=== PATIENT | female | born 1960 | race Caucasian/White ===

== ENCOUNTER 2025-01-14 09:23 | Emergency (ER) | payer MEDICARE, OTHER, SELFPAY ==
--- NOTE | ~2025-01-14 | CT_ITS ---
CLINICAL HISTORY: constipation urinary retention. ?sbo CT ABDOMEN AND PELVIS WITHOUT CONTRAST Comparison: None Findings: Irregular linear densities in the right middle and bilateral lower lobes associated with hazy ground-glass opacities. No pleural effusion or consolidation. Small hiatal hernia. There are bilateral breast prostheses. Postsurgical changes in the left breast below the prosthesis. No acute abnormalities in the unenhanced solid organs. No urolithiasis. Cholelithiasis. No AAA. No bowel obstruction, pneumoperitoneum, or pneumatosis. No ascites. No significant mesenteric or paracolic edema. Large stool burden in the ascending colon. The urinary bladder is distended up to 14 x 11 x 11 cm. No significant wall thickening or perivesical edema. Atrophic uterus. The appendix is identified. No acute appendicitis. There are mild superior endplate compression deformities in T11, T12 and L4. IMPRESSION: 1. No acute obstructive uropathy or urolithiasis. Prominent urinary bladder distention with a volume of approximately 881 mL. 2. No obstructive or acute inflammatory changes in the gastrointestinal tract. 3. Cholelithiasis. 4. Multifocal atelectasis and/or scarring in the right middle and bilateral lower lobes. Concomitant ground-glass opacities secondary to atelectasis versus inflammation/infection. 5. Age-indeterminate mild compression fractures in T11, T12 and L4. This document has been electronically signed by: Marianela Cardona DO on 01/14/2025 13:15:27
[2025-01-14 09:30] VITALS: BP 147/92; PULSE 108; RESP 16; TEMP 36.4; O2SAT 98; BMI 29.8
--- OUTSIDE RECORDS SUMMARY | 2025-01-14 09:46 | XMS_ITS | Clinical Summary ---
Author Organization Formerly [facility] Address [address] [place] [address] Care Team Providers Care Lathe Turner Name Role Phone Unavailable Primary Care Provider Unavailabl e Allergies No known active allergies Medications Calcium Carbonate-Vitam in D (CALCIUM-D PO) Calcium + D TABS ; Start Date: ; End Date: Active Flaxseed, Linseed, (FLAX SEED OIL) 1000 MG Cap Flax Seed Oil 1000 MG Oral Capsule ; Start Date: ; End Date: Active dronedarone (MULTAQ) 400 MG tablet Multaq 400 MG Oral Tablet TAKE 1 TABLET TWICE DAILY, WITH MORNING AND EVENING MEAL ; Start Date: 04/11/2014; End Date: 04/11/2014 Active Multiple Vitamin (MULTIVITAMIN) tablet Take 1 tablet by mouth daily. Active aspirin enteric coated (ECOTRIN LOW STRENGTH) 81 MG EC tablet Take 81 mg by mouth daily. Active L-Methylfolate- [id number] (CEREFOLIN) 6-1-50-5 MG TabIndications: Memory loss TAKE 1 CAPLET BY MOUTH DAILY. 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 Resolved Problems Problem Noted Date Diagnosed Date Resolved Date URI (upper respiratory infection) 08/01/2015 11/26/2023 Immunizations Immunization Administration Dates Next Due Influenza (AFLURIA/FLUZONE) Inactivated/Split Quadrivalent with Preservative IM 10/02/2014,09/15/2013 Influenza Inactivated/Split Preservative Free IM 07/03/2016,06/16/2012,06/05/2011 Tdap 06/16/2012 Social History Tobacco Use Types Packs/Day Years Used Date Smoking Tobacco: Never Alcohol Use Standard Drinks/Week Comments No 0 (1 standard drink = 0.6 oz pur e alcohol) Comments No Sex and Gender Information Value Date Recorded Sex Assigned at Not on file Legal Sex Female 1:26 PM EDT Gender Identity Not on file Sexual Orientation Not on file Last Filed Vital Signs Vital Sign Reading Time Taken Comments Blood Pressure 121/80 09/05/2016 12:27 PM EST Pulse 93 09/05/2016 12:27 PM EST Temperature 36.8 ??C (98.2 ??F) 09/05/2016 12:[address] Respiratory Rate 12 09/05/2016 12:27 PM EST Oxygen Saturation - - Inhaled Oxygen Concentration - - Weight 74.4 kg (164 lb) 09/05/2016 12:27 PM EST Height 177.8 cm (5' 10 ) 09/05/2016 12:27 PM EST Body Mass Index 23.53 09/05/2016 12:27 PM EST Plan of Treatment Health Maintenance Due Date Last Done Comments Hepatitis C Virus Screening 1959 HIV Screening 02/15/1972 Pneumococcal Vaccines 50+ (1 of 2 - PCV) 1978 Colonoscopy 02/15/2004 Zoster (Shingles) Vaccine (1 of 2) 2009 Pap Smear (Ages 21-65) 10/02/2017 10/02/2014 Mammogram 07/04/2018 07/04/2016, 02/12, 07/05/2012 RSV Vaccine 60 years and older and Patients (1 - Risk 60-74 years 1-dose series) 2019 DTaP/Tdap/Td Vaccines (2 - Td or Tdap) 06/16/2022 06/16/2012 DXA Bone Density (Females,Ages 65 and older) 02/15/2024 COVID-19 Vaccine (1 - season) 2024 Influenza Vaccine 04/14/2025 07/03/2016, , 09/15/2013, Additional history exists Hepatitis B Vaccines Aged Out No long er eligible based on patient's age to complete this topic Procedures Procedure Name Priority Date/Time Associated Diagnosis Comments IMAGING BREAST/BX/MAMMO 07/04/2016 THINPREP PAP TEST (METALWORKER) WITH HPV SCREEN Routine 10/02/2014 4:51 PM EST from Last 3 Months or Most Recently Relevant to Health Maintenance Results * IMAGING BREAST/BX/MAMMO (07/04/2016) Anatomical Region Laterality Modality Other Narrative 07/05/2016 6:54 AM EDT Ordered by an unspecified provider. us Generic Provider IMG LEGACY PROCEDURES Edited Re sult - Final * ThinPrep Pap Test (Committee Member) with HPV Screen (10/02/2014 4:51 PM EST) Report [facility] CONVERSION Comment: ? GYNECOLOGICAL CYTOLOGY REPORT ? THINPREP PAP TEST WITH HPV SCREEN SPECIMEN ADEQUACY: SATISFACTORY FOR EVALUATION. INTERPRETATION: NEGATIVE FOR INTRAEPITHELIAL LESION OR MALIGNANCY. SCANT CELLULARITY. ATROPHY. ?ELECTRONICALLY SIGNED OUT BY: ? LINDA MCCAIN (ASCP) ? CLINICAL INFORMATION: LMP: ??NG SOURCE: CERVICAL ?? NUMBER OF VIALS/SLIDES SUBMITTED ??1 DIAGNOSIS / ICD-9 ??V70.0 ABNORMAL PAP DATE ??NG ? AUTOMATED PRESCREENING OF ALL LIQUID BASED SPECIMENS IS PERFORMED BY THE IM-Sense IMAGING SYSTEM OR FOCALPOINT, UNLESS OTHERWISE STATED. THE PAP TEST IS A SCREENING TEST WITH AN INHERENT FALSE NEGATIVE RATE. UNLESS NOTED, THIS CASE WAS SCREENED AT [facility] [place], [place] [address] CT REG # [id number]. ?? 10/02/2014 4:51 PM EST us Ciera Pierce MD LAB AMB PATH/CYTO ORDERABLE S Edited Result - Final [facility] CONVERSION from Last 3 Months or Most Recently Relevant to Health Maintenance Insurance [facility] [place] [id number]
--- OUTSIDE RECORDS SUMMARY | 2025-01-14 09:46 | XMS_ITS | Encounter Summary ---
Author Organization Formerly [facility] Address [address] [place] [address] Care Team Providers Care Blanking Machine Operator Name Role Phone Cristina Fournier DO Primary Care Provider [phone] Encounter Details Date Type Department Care Team (Late st Contact Info) Description 08/24/2017 Scanned Document [address] [phone] Provider, Generic Social History Tobacco Use Types Packs/Day Years Used Date Smoking Tobacco: Never Alcohol Use Standard Drinks/Week Comments No 0 (1 standard drink = 0.6 oz pur e alcohol) Comments No Sex and Gender Information Value Date Recorded Sex Assigned at Not on file Legal Sex Female 1:26 PM EDT Gender Identity Not on file Sexual Orientation Not on file documented as of this encounter Plan of Treatment Not on file documented as of this encounter Visit Diagnoses Not on filedocumented in this encounter Care Teams Blanking Machine Operator Relationship Specialty Start Date End Date Cristina Fournier DO PCP - General Family Medicine 07/04/16 09/21/17 documented as of this encounter
--- OUTSIDE RECORDS SUMMARY | 2025-01-14 09:46 | XMS_ITS | Encounter Summary ---
Author Organization [facility] Address [address] [place] [address] Care Team Providers Care Database Management Specialist Name Role Phone Cristina Fournier DO Primary Care Provider [phone] Encounter Details Date Type Department Care Team (Late st Contact Info) Description 08/24/2017 Scanned Document [address] [phone] Provider, Generic Social History Tobacco [...] on filedocumented in this encounter Care Teams Database Management Specialist Relationship Specialty Start Date End Date Cristina Fournier DO PCP - General Family Medicine 07/04/16 09/21/17 documented as of this encounter
--- OUTSIDE RECORDS SUMMARY | 2025-01-14 09:47 | XMS_ITS | Encounter Summary ---
Author Organization [facility] Address [address] [place] [address] Care Team Providers Care Spindle Plumber Name Role Phone Ciera Pierce MD Primary Care Provider [phone] Cristina Fournier DO Primary Care Provider [phone] Encounter Details Date Type Department Care Team (Late st Contact Info) Description 08/24/2014 Scanned Document [address] [phone] Provider, Generic Social History Tobacco Use Types Packs/Day Years Used Date Smoking Tobacco: Never Assessed Comments Unknown Sex and Gender Information Value Date Recorded Sex Assigned at Not on file Legal Sex Female 1:26 PM EDT Gender Identity Not on file Sexual Orientation Not on file documented as of this encounter Plan of Treatment Not on file documented as of this encounter Visit Diagnoses Not on filedocumented in this encounter Care Teams Spindle Plumber Relationship Specialty Start Date End Date Ciera Pierce MD PCP - General Internal Medicine 06/01/15 07/03/16 Cristina Fournier DO PCP - General Family Medicine 07/04/16 09/21/17 documented as of this encounter
--- OUTSIDE RECORDS SUMMARY | 2025-01-14 09:47 | XMS_ITS | Encounter Summary ---
Author Organization [facility] Address [address] [place] [address] Care Team Providers Care Superintendent Greens Name Role Phone Ciera Pierce MD Primary Care Provider [phone] Cristina Fournier DO Primary Care Provider [phone] Encounter Details Date Type Department Care Team (Late st Contact Info) Description 08/24/2014 Scanned Document [address] [phone] Provider, Generic Social History Tobacco Use Types [...] on filedocumented in this encounter Care Teams Superintendent Greens Relationship Specialty Start Date End Date Ciera Pierce MD PCP - General Internal Medicine 06/01/15 07/03/16 Cristina Fournier DO PCP - General Family Medicine 07/04/16 09/21/17 documented as of this encounter
--- OUTSIDE RECORDS SUMMARY | 2025-01-14 09:47 | XMS_ITS | Encounter Summary ---
Author Organization Formerly [facility] Address [address] [id number] Care Team Providers Care Lang Interpreter Name Role Phone Cristina Fournier Primary Care Provider Reason for Visit * Reason Onset Date Comments Medication Problem 07/04/2016 Encounter Details Date Type Department Care Team (Late st Contact Info) Description 07/04/[address] [phone] Ciera Pierce MD [address] [place] [address] [place] [phone] Medication Problem Social History Tobacco Use Types Packs/Day Years Used Date Smoking Tobacco: Never Alcohol Use Standard Drinks/Week Comments Not Asked 0 (1 standard drink = 0.6 oz pur e alcohol) Comments No Sex and Gender Information Value Date Recorded Sex Assigned at Not on file Legal Sex Female 1:26 PM EDT Gender Identity Not on file Sexual Orientation Not on file documented as of this encounter Miscellaneous Notes * Telephone Encounter - Priscilla Hatfield RN - 07/04/2016 3:05 PM EDT 07-04-16 PT WOULD LIKE TO KNOW HOW SHE SHOULD WEAN HERSELF OFF THE MED * Telephone Encounter - Priscilla Hatfield RN - 07/04/2016 2:47 PM EDT 07-04-16 2:45PM LM TO CB * Telephone Encounter - Cristina Fournier DO - 07/04/2016 2:29 PM EDT We discussed that they do not come in 5mg tablets. She could either do her best to try to cut them in half; or she can just stop taking them, and see how she feels. In my experience, people do sometimes have side effects when they abruptly stop an SSRI, so it would be better if she can find a way to cut them. * Telephone Encounter - Priscilla Hatfield RN - 07/04/2016 10:50 AM EDT 07-04-16 FLUOXETINE DOES NOT COME IN 5 MG TABS PLEASE ADVISE * Telephone Encounter - Shabana Herring - 07/04/2016 10:45 AM EDT Patient called- wants to be on 5mg fluoxetine because the 10mg is too difficult to cut . Patient explained she went to pharmacy and they tried pill cutters and the pill crumbled. Patient is going to return pills topharmacy and also states she wants to be weaned off. Wants advice. -ld documented in this encounter Plan of Treatment Not on file documented as of this encounter Visit Diagnoses Not on filedocumented in this encounter Care Teams Lang Interpreter Relationship Specialty Start Date End Date Cristina Fournier DO PCP - General Family Medicine 07/04/16 09/21/17 documented as of this encounter
--- OUTSIDE RECORDS SUMMARY | 2025-01-14 09:47 | XMS_ITS | Encounter Summary ---
Author Organization [facility] Address [address] [place] [address] Care Team Providers Care Threshing Department Supervisor Name Role Phone Ciera Pierce MD Primary Care Provider [phone] Cristina Fournier DO Primary Care Provider [phone] Reason for Visit * Reason Comments Medication Refill Encounter Details Date Type Department Care Team (Late st Contact Info) Description 04/22/[address] [phone] Ciera Pierce MD [address] [place] [address] [place] [phone] Depression Social History Tobacco Use Types Packs/Day Years [...] documented as of this encounter Visit Diagnoses Diagnosis Depression Depressive disorder, not elsewhere classified documented in this encounter Care Teams Threshing Department Supervisor Relationship Specialty Start Date End Date Ciera Pierce MD PCP - General Internal Medicine 06/01/15 07/03/16 Cristina Fournier DO PCP - General Family Medicine 07/04/16 09/21/17 documented as of this encounter
--- OUTSIDE RECORDS SUMMARY | 2025-01-14 09:47 | XMS_ITS | Clinical Summary ---
Author Organization [facility] Address [address] [place] [address] Care Team Providers Care Dance Director Name Role Phone Shantanu Cristina Victor Hugo ELIZABETH Primary Care Provider [phone] Social History Tobacco Use Types Packs/Day Years Used Date Smoking Tobacco: Never Assessed Sex and Gender Information Value Date Recorded Sex Assigned at Not on file Gender Identity Not on file Sexual Orientation Not on file Plan of Treatment Health Maintenance Due Date Last Done Comments Hepatitis C Screening 1960 COVID-19 Vaccine (#1) 1959 Depression Screening 1971 Preventative Health Evaluation 1977 DTap / Tdap / Td (1 - Tdap) 1978 Cervical Cancer Screening (P ap Smear) 02/15/1980 Colon Cancer Screening (Colonoscopy) 02/15/2004 Shingrix-Zoster Vaccine (1 of 2) 2009 Breast Cancer Screening (Mammogram) 07/04/2018 07/04/2016 Fall Risk Assessment 02/15/2024 Osteoporosis Screening (DEXA Scan) 02/15/2024 Pneumococcal Vaccine (1 of 1 - PCV) 02/15/2024 Influenza Vaccine (#1) 2024 RSV Adult > 60+ Yrs or Pregn ant (1 - 1-dose 75+ series) 2034 Hepatitis B Vaccines Aged Out No long er eligible based on patient's age to complete this topic Pneumococcal Vaccine Aged Out No long er eligible based on patient's age to complete this topic RSV Ped < 20 months Aged Out No longe r eligible based on patient's age to complete this topic Advance Directives For more information, please contact: [phone] Documents on File Type Date Recorded Patient Or Manager Expl anation Advance Directive and Living Will 07/04/2016 8:40 AM Will Care Teams Dance Director Relationship Specialty Start Date End Date Cristina Fournier DO [address] [place] [phone] PCP - General Family Medicine 07/04/16
--- OUTSIDE RECORDS SUMMARY | 2025-01-14 09:47 | XMS_ITS | Encounter Summary ---
Author Organization [facility] Address [address] [place] [address] Care Team Providers Care Paving Foreman Name Role Phone Ciera Pierce MD Primary Care Provider [phone] Cristina Fournier DO Primary Care Provider [phone] Encounter Details Date Type Department Care Team (Late st Contact Info) Description 08/24/2014 Scanned Document [address] [phone] Provider, Generic Social History Tobacco Use Types [...] on filedocumented in this encounter Care Teams Paving Foreman Relationship Specialty Start Date End Date Ciera Pierce MD PCP - General Internal Medicine 06/01/15 07/03/16 Cristina Fournier DO PCP - General Family Medicine 07/04/16 09/21/17 documented as of this encounter
--- OUTSIDE RECORDS SUMMARY | 2025-01-14 09:47 | XMS_ITS | Encounter Summary ---
Author Organization [facility] Address [address] [place] [address] Care Team Providers Care Mold Filler And Drainer Name Role Phone Ciera Pierce MD Primary Care Provider [phone] Cristina Fournier DO Primary Care Provider [phone] Encounter Details Date Type Department Care Team (Late st Contact Info) Description 04/23/2015 Scanned Document [address] [phone] Provider, Generic Social History Tobacco Use Types [...] on filedocumented in this encounter Care Teams Mold Filler And Drainer Relationship Specialty Start Date End Date Ciera Pierce MD PCP - General Internal Medicine 06/01/15 07/03/16 Cristina Fournier DO PCP - General Family Medicine 07/04/16 09/21/17 documented as of this encounter
--- OUTSIDE RECORDS SUMMARY | 2025-01-14 09:47 | XMS_ITS | Encounter Summary ---
Author Organization [facility] Address [address] [place] [address] Care Team Providers Care Heel Dipper Name Role Phone Cristina Fournier DO Primary Care Provider [phone] Encounter Details Date Type Department Care Team (Late st Contact Info) Description 09/05/2016 Scanned Document [address] [phone] Cristina Fournier DO [address] [place] [address] Social History Tobacco Use Types Packs/Day Years [...] on filedocumented in this encounter Care Teams Heel Dipper Relationship Specialty Start Date End Date Cristina Fournier DO PCP - General Family Medicine 07/04/16 09/21/17 documented as of this encounter
--- OUTSIDE RECORDS SUMMARY | 2025-01-14 09:47 | XMS_ITS | Encounter Summary ---
Author Organization [facility] Address [address] [place] [address] Care Team Providers Care Food Counselor Name Role Phone Ciera Pierce MD Primary Care Provider [phone] Cristina Fournier DO Primary Care Provider [phone] Encounter Details Date Type Department Care Team (Late st Contact Info) Description 08/24/2014 Scanned Document [address] [phone] Provider, Generic Social History Tobacco Use Types [...] on filedocumented in this encounter Care Teams Food Counselor Relationship Specialty Start Date End Date Ciera Pierce MD PCP - General Internal Medicine 06/01/15 07/03/16 Cristina Fournier DO PCP - General Family Medicine 07/04/16 09/21/17 documented as of this encounter
--- OUTSIDE RECORDS SUMMARY | 2025-01-14 09:47 | XMS_ITS | Encounter Summary ---
Author Organization [facility] Address [address] [place] [address] Care Team Providers Care Executive Talent Acquisition Consultant Name Role Phone Cristina Fournier DO Primary Care Provider [phone] Encounter Details Date Type Department Care Team (Late st Contact Info) Description 09/25/2016 Scanned Document [address] [phone] Provider, Generic Social History Tobacco [...] on filedocumented in this encounter Care Teams Executive Talent Acquisition Consultant Relationship Specialty Start Date End Date Cristina Fournier DO PCP - General Family Medicine 07/04/16 09/21/17 documented as of this encounter
--- OUTSIDE RECORDS SUMMARY | 2025-01-14 09:47 | XMS_ITS | Encounter Summary ---
Author Organization [facility] Address [address] [place] [address] Care Team Providers Care Forming Department End Finder Name Role Phone Cristina Fournier DO Primary Care Provider [phone] Encounter Details Date Type Department Care Team (Late st Contact Info) Description 07/11/2016 Scanned Document [address] [phone] Cristina Fournier DO [address] [place] [address] Social History Tobacco Use Types Packs/Day Years [...] on filedocumented in this encounter Care Teams Forming Department End Finder Relationship Specialty Start Date End Date Cristina Fournier DO PCP - General Family Medicine 07/04/16 09/21/17 documented as of this encounter
--- OUTSIDE RECORDS SUMMARY | 2025-01-14 09:47 | XMS_ITS | Encounter Summary ---
Author Organization [facility] Address [address] [place] [address] Care Team Providers Care Senior Peoplesoft Developer Name Role Phone Ciera Pierce MD Primary Care Provider [phone] Cristina Fournier DO Primary Care Provider [phone] Encounter Details Date Type Department Care Team (Late st Contact Info) Description 08/24/2014 Scanned Document [address] [phone] Provider, Generic Social History Tobacco Use Types [...] on filedocumented in this encounter Care Teams Senior Peoplesoft Developer Relationship Specialty Start Date End Date Ciera Pierce MD PCP - General Internal Medicine 06/01/15 07/03/16 Cristina Fournier DO PCP - General Family Medicine 07/04/16 09/21/17 documented as of this encounter
--- OUTSIDE RECORDS SUMMARY | 2025-01-14 09:47 | XMS_ITS | Encounter Summary ---
Author Organization [facility] Address [address] [place] [address] Care Team Providers Care Compliance Nurse Name Role Phone Ciera Pierce MD Primary Care Provider [phone] Cristina Fournier DO Primary Care Provider [phone] Encounter Details Date Type Department Care Team (Late st Contact Info) Description 11/08/2015 Scanned Document [address] [phone] Provider, Generic Social History Tobacco [...] on filedocumented in this encounter Care Teams Compliance Nurse Relationship Specialty Start Date End Date Ciera Pierce MD PCP - General Internal Medicine 06/01/15 07/03/16 Cristina Fournier DO PCP - General Family Medicine 07/04/16 09/21/17 documented as of this encounter
--- OUTSIDE RECORDS SUMMARY | 2025-01-14 09:47 | XMS_ITS | Encounter Summary ---
Author Organization [facility] Address [address] [place] [address] Care Team Providers Care Incident Response Lead Name Role Phone Ciera Pierce MD Primary Care Provider [phone] Cristina Fournier DO Primary Care Provider [phone] Encounter Details Date Type Department Care Team (Late st Contact Info) Description 08/24/2014 Scanned Document [address] [phone] Provider, Generic Social History Tobacco Use Types [...] on filedocumented in this encounter Care Teams Incident Response Lead Relationship Specialty Start Date End Date Ciera Pierce MD PCP - General Internal Medicine 06/01/15 07/03/16 Cristina Fournier DO PCP - General Family Medicine 07/04/16 09/21/17 documented as of this encounter
--- OUTSIDE RECORDS SUMMARY | 2025-01-14 09:47 | XMS_ITS | Encounter Summary ---
Author Organization [facility] Address [address] [place] [address] Care Team Providers Care Driver Trainer Name Role Phone Ciera Pierce MD Primary Care Provider [phone] Cristina Fournier DO Primary Care Provider [phone] Encounter Details Date Type Department Care Team (Late st Contact Info) Description 07/12/2015 Scanned Document [address] [phone] Provider, Generic Social History Tobacco Use Types [...] on filedocumented in this encounter Care Teams Driver Trainer Relationship Specialty Start Date End Date Ciera Pierce MD PCP - General Internal Medicine 06/01/15 07/03/16 Cristina Fournier DO PCP - General Family Medicine 07/04/16 09/21/17 documented as of this encounter
--- OUTSIDE RECORDS SUMMARY | 2025-01-14 09:47 | XMS_ITS | Encounter Summary ---
Author Organization [facility] Address [address] [place] [address] Care Team Providers Care Legal Coordinator Name Role Phone Cristina Fournier DO Primary Care Provider [phone] Encounter Details Date Type Department Care Team (Late st Contact Info) Description 07/04/2016 Scanned Document [address] [phone] Provider, Generic Social History Tobacco Use Types [...] on file documented as of this encounter Procedures Procedure Name Priority Date/Time Associated Diagnosis Comments IMAGING BREAST/BX/MAMMO 07/04/2016 documented in this encounter Results * IMAGING BREAST/BX/MAMMO (07/04/2016) Anatomical Region Laterality Modality Other Narrative 07/05/2016 6:54 AM EDT Ordered by an unspecified provider. us Generic Provider IMG LEGACY PROCEDURES Edited Re sult - Final documented in this encounter Visit Diagnoses Not on filedocumented in this encounter Care Teams Legal Coordinator Relationship Specialty Start Date End Date Cristina Fournier DO PCP - General Family Medicine 07/04/16 09/21/17 documented as of this encounter
--- OUTSIDE RECORDS SUMMARY | 2025-01-14 09:47 | XMS_ITS | Encounter Summary ---
Author Organization [facility] Address [address] [place], [place] [id number] Care Team Providers Care Bakery Team Member Name Role Phone Cristina Fournier DO Primary Care Provider [phone] Encounter Details Date Type Department Care Team (Late st Contact Info) Description 07/31/2016 Scanned Document [address] [phone] Cristina Fournier, DO [address] [place] [address] Social History Tobacco Use Types Packs/Day Years [...] on filedocumented in this encounter Care Teams Bakery Team Member Relationship Specialty Start Date End Date Cristina Fournier DO PCP - General Family Medicine 07/04/16 09/21/17 documented as of this encounter
--- OUTSIDE RECORDS SUMMARY | 2025-01-14 09:47 | XMS_ITS | Encounter Summary ---
Author Organization [facility] Address [address] [place] [address] Care Team Providers Care Supervisor [employer] Name Role Phone Ciera Pierce MD Primary Care Provider [phone] Cristina Fournier DO Primary Care Provider [phone] Encounter Details Date Type Department Care Team (Late st Contact Info) Description 08/24/2014 Scanned Document [address] [phone] Provider, Generic Social History Tobacco Use Types [...] on filedocumented in this encounter Care Teams Supervisor [employer] Relationship Specialty Start Date End Date Ciera Pierce MD PCP - General Internal Medicine 06/01/15 07/03/16 Cristina Fournier DO PCP - General Family Medicine 07/04/16 09/21/17 documented as of this encounter
--- OUTSIDE RECORDS SUMMARY | 2025-01-14 09:47 | XMS_ITS | Encounter Summary ---
Author Organization [facility] Address [address] [place] [address] Care Team Providers Care Transporter Driver Name Role Phone Ciera Pierce MD Primary Care Provider [phone] Cristina Fournier DO Primary Care Provider [phone] Encounter Details Date Type Department Care Team (Late st Contact Info) Description 08/24/2014 Scanned Document [address] [phone] Provider, Generic Social History Tobacco Use Types [...] on filedocumented in this encounter Care Teams Transporter Driver Relationship Specialty Start Date End Date Ciera Pierce MD PCP - General Internal Medicine 06/01/15 07/03/16 Cristina Fournier DO PCP - General Family Medicine 07/04/16 09/21/17 documented as of this encounter
--- OUTSIDE RECORDS SUMMARY | 2025-01-14 09:47 | XMS_ITS | Encounter Summary ---
Author Organization [facility] Address [address] [place] [address] Care Team Providers Care Top Waddy Name Role Phone Cristina Fournier DO Primary Care Provider [phone] Encounter Details Date Type Department Care Team (Late st Contact Info) Description 07/11/2016 Scanned Document [address] [phone] Cristina Fournier DO [address] [place] [address] Social History Tobacco Use Types Packs/Day Years [...] on filedocumented in this encounter Care Teams Top Waddy Relationship Specialty Start Date End Date Cristina Fournier DO PCP - General Family Medicine 07/04/16 09/21/17 documented as of this encounter
--- OUTSIDE RECORDS SUMMARY | 2025-01-14 09:47 | XMS_ITS | Encounter Summary ---
Author Organization [facility] Address [address] [place] [address] Care Team Providers Care Distillery Miller Name Role Phone Ciera Pierce MD Primary Care Provider [phone] Cristina Fournier DO Primary Care Provider [phone] Encounter Details Date Type Department Care Team (Late st Contact Info) Description 08/24/2014 Scanned Document [address] [phone] Provider, Generic Social History Tobacco Use Types [...] on filedocumented in this encounter Care Teams Distillery Miller Relationship Specialty Start Date End Date Ciera Pierce MD PCP - General Internal Medicine 06/01/15 07/03/16 Cristina Fournier DO PCP - General Family Medicine 07/04/16 09/21/17 documented as of this encounter
--- OUTSIDE RECORDS SUMMARY | 2025-01-14 09:47 | XMS_ITS | Encounter Summary ---
Author Organization [facility] Address [address] [place] [address] Care Team Providers Care Cost Control Specialist Name Role Phone Ciera Pierce MD Primary Care Provider [phone] Cristina Fournier DO Primary Care Provider [phone] Encounter Details Date Type Department Care Team (Late st Contact Info) Description 08/24/2014 Scanned Document [address] [phone] Provider, Generic Social History Tobacco Use Types [...] on filedocumented in this encounter Care Teams Cost Control Specialist Relationship Specialty Start Date End Date Ciera Pierce MD PCP - General Internal Medicine 06/01/15 07/03/16 Cristina Fournier DO PCP - General Family Medicine 07/04/16 09/21/17 documented as of this encounter
--- OUTSIDE RECORDS SUMMARY | 2025-01-14 09:47 | XMS_ITS | Encounter Summary ---
Author Organization [facility] Address [address] [place] [id number] Care Team Providers Care Licensed Insurance Sales Agent Name Role Phone Ciera Pierce MD Primary Care Provider [phone] Cristina Fournier DO Primary Care Provider [phone] Encounter Details Date Type Department Care Team (Late st Contact Info) Description 08/20/[address] [phone] Ciera Pierce MD [address] [place] [address] [place] [phone] Social History Tobacco Use Types Packs/Day Years Used Date Smoking Tobacco: Never Alcohol Use Standard Drinks/Week Comments Not Asked 0 (1 standard drink = 0.6 oz pur e alcohol) Comments Unknown Sex and Gender Information Value Date Recorded Sex Assigned at Not on file Legal Sex Female 1:26 PM EDT Gender Identity Not on file Sexual Orientation Not on file documented as of this encounter Miscellaneous Notes * Telephone Encounter - Shabana Herring - 08/20/2015 4:49 PM EST PATIENT WOULD LIKE TO DISCUSS A NEW MEDICATION CERFOLIN NAC. PLEASE CALL [phone] documented in this encounter Plan of Treatment Not on file documented as of this encounter Visit Diagnoses Not on filedocumented in this encounter Care Teams Licensed Insurance Sales Agent Relationship Specialty Start Date End Date Ciera Pierce MD PCP - General Internal Medicine 06/01/15 07/03/16 Cristina Fournier DO PCP - General Family Medicine 07/04/16 09/21/17 documented as of this encounter
--- OUTSIDE RECORDS SUMMARY | 2025-01-14 09:47 | XMS_ITS | Encounter Summary ---
Author Organization [facility] Address [address] [place] [address] Care Team Providers Care Professional Nursing Assistant Name Role Phone Ciera Pierce MD Primary Care Provider [phone] Cristina Fournier DO Primary Care Provider [phone] Encounter Details Date Type Department Care Team (Late st Contact Info) Description 08/24/2014 Scanned Document [address] [phone] Provider, Generic Social History Tobacco Use Types [...] on filedocumented in this encounter Care Teams Professional Nursing Assistant Relationship Specialty Start Date End Date Ciera Pierce MD PCP - General Internal Medicine 06/01/15 07/03/16 Cristina Fournier DO PCP - General Family Medicine 07/04/16 09/21/17 documented as of this encounter
--- OUTSIDE RECORDS SUMMARY | 2025-01-14 09:47 | XMS_ITS | Clinical Summary ---
Author Organization [facility] Address [address] [place] [address] Care Team Providers Care Filter Tender Name Role Phone Nirav Ruiz Primary Care Provider Unav ailable Social History Tobacco Use Types Packs/Day Years Used Date Smoking Tobacco: Never Assessed Comments Unknown Sex and Gender Information Value Date Recorded Sex Assigned at Not on file Legal Sex Female 6:03 PM EDT Gender Identity Not on file Sexual Orientation Not on file Plan of Treatment Health Maintenance Due Date Last Done Comments Hepatitis C Screening 1959 DTaP/Tdap/Td (1 - Tdap) 1977 Mammogram/Breast Imaging 1999 Pneumococcal 50+ years (1 of 1 - PCV) 2009 Zoster (Shingrix) (1 of 2) 2009 Bone Density 02/15/2024 COVID-19 Vaccine ( - 2023-2 5 season) 2024 Influenza (Season Ended) 2025 RSV (1 - 1-dose 75+ series) 2034 HPV Vaccine Aged Out No longer eligi ble based on patient's age to complete this topic Hep A Aged Out No longer eligi ble based on patient's age to complete this topic Hep B Aged Out No longer eligi ble based on patient's age to complete this topic Hib Aged Out No longer eligi ble based on patient's age to complete this topic Meningococcal ACWY Aged Out No longer eligible based on patient's age to complete this topic Pap Smear Discontinued Zoster (Zostavax) Discontinued Care Teams Filter Tender Relationship Specialty Start Date End Date Nirav Ruiz PCP - General 04/20/23
--- OUTSIDE RECORDS SUMMARY | 2025-01-14 09:47 | XMS_ITS | Encounter Summary ---
Author Organization [facility] Address [address] [place] [address] Care Team Providers Care Family And Consumer Education Teacher Name Role Phone Ciera Pierce MD Primary Care Provider [phone] Cristina Fournier DO Primary Care Provider [phone] Encounter Details Date Type Department Care Team (Late st Contact Info) Description 08/24/2014 Scanned Document [address] [phone] Provider, Generic Social History Tobacco Use Types [...] on filedocumented in this encounter Care Teams Family And Consumer Education Teacher Relationship Specialty Start Date End Date Ciera Pierce MD PCP - General Internal Medicine 06/01/15 07/03/16 Cristina Fournier DO PCP - General Family Medicine 07/04/16 09/21/17 documented as of this encounter
--- OUTSIDE RECORDS SUMMARY | 2025-01-14 09:47 | XMS_ITS | Encounter Summary ---
Author Organization [facility] Address [address] [place] [address] Care Team Providers Care Diesel Electrician Name Role Phone Ciera Pierce MD Primary Care Provider [phone] Cristina Fournier DO Primary Care Provider [phone] Encounter Details Date Type Department Care Team (Late st Contact Info) Description 08/24/2014 Scanned Document [address] [phone] Provider, Generic Social History Tobacco Use Types [...] on filedocumented in this encounter Care Teams Diesel Electrician Relationship Specialty Start Date End Date Ciera Pierce MD PCP - General Internal Medicine 06/01/15 07/03/16 Cristina Fournier DO PCP - General Family Medicine 07/04/16 09/21/17 documented as of this encounter
[2025-01-14 09:51] VITALS: BP 141/85; PULSE 101; RESP 18
--- NOTE | 2025-01-14 09:52 | ED.ABDPAIN ---
HPI - Abdominal Pain General Chief Complaint: Abdominal Pain Stated Complaint: constipated Time Seen by Provider: 01/14/25 09:36 Source: patient, family, RN notes reviewed and old records reviewed History of Present Illness ED Provider: Francine Trinh PA-C HPI narrative: 64-year-old female with a past medical history of dementia presenting to the ED complaining of constipation without BM since Thursday, and urinary retention since 1899 last night. History obtained from . Denies passing flatus. States patient appears uncomfortable when attempting to use the bathroom. Denies nausea, vomiting, fever. Attempted MiraLax and suppositories at home without relief Related Data Allergies Allergy/AdvReac Type Severity Reaction Status Date / Time No Known Allergies Allergy Verified 01/14/25 09:32 Review of Systems Review of Systems Yes all other systems are reviewed and are negative Constitutional: Reports as per [facility] Past Medical History Attestation statement: The following information was validated with the patient. Source: old records reviewed Physical Exam ED Vital Signs: Vital Signs - 24 hr 01/14/25 09:30 01/14/25 09:51 01/14/25 10:10 Temperature 97.5 F 97.2 F Pulse Rate 108 H 101 H 72 Respiratory Rate 16 18 18 Blood Pressure 147/92 H 141/85 H 148/90 H Pulse Oximetry 98 98 Oxygen Delivery Method Room Air Room Air 01/14/25 12:11 01/14/25 14:04 01/14/25 14:28 Temperature 97.7 F Pulse Rate 100 100 100 Respiratory Rate 16 16 16 Blood Pressure 146/83 H 146/83 H 146/83 H Pulse Oximetry 98 98 98 Oxygen Delivery Method Room Air Room Air Room Air BMI result Body Mass Index 29.8 Const General: cooperative, healthy appearing and no acute distress Orientation/consciousness: patient oriented x3 Limitations: no limitations HENMT Head: Yes normal to inspection and Yes atraumatic Ears: hearing grossly normal bilaterally General nose exam: Normal external nose present Face and sinus: Yes normal facial exam Eyes General: appearance normal, both eyes and all related structures EOM: EOMs intact bilaterally Neck Neck: Yes normal visual inspection and Yes no meningeal signs Resp Effort & Inspection: normal respiratory effort and no respiratory distress Cardio Rate: regular rate GI Inspection: Yes normal to inspection Palpation (GI): Soft to palpation, nontender, no guarding and not rigid Rectal Exam - Female: No fecal impaction General: Yes no CVA tenderness Back/Spine/Pelvis Back: no CVA tenderness Skin Rashes: no rashes Wounds: no wounds Neuro General: patient oriented x3, tone normal and no meningeal signs Cranial nerves: Yes CN's II-XII intact bilaterally Gait exam (Neuro): Normal gait present Extrem General: Yes normal to inspection Course Course Course Narrative: 1328--labs and UA reassuring CT abdomen pelvis wo IV con IMPRESSION: 1. No acute obstructive uropathy or urolithiasis. Prominent urinary bladder distention with a volume of approximately 881 mL. 2. No obstructive or acute inflammatory changes in the gastrointestinal tract. 3. Cholelithiasis. 4. Multifocal atelectasis and/or scarring in the right middle and bilateral lower lobes. Concomitant ground-glass opacities secondary to atelectasis versus inflammation/infection. 5. Age-indeterminate mild compression fractures in T11, T12 and L4. > ashleyangella denies URI symptoms including cough. Low suspicion for acute pneumonia/infectious etiology in the lungs. Denies recent injury/falls > low suspicion for acute fx. Low suspicion for cauda equina. Patient had normal rectal tone on rectal exam. Suspicious urinary retention caused by patient's Seroquel. states Seroquel was recently increased from 25 mg b.i.d. to 50 mg in the morning and 25 mg at night about 1 month ago >> recommended going back to 25 mg b.i.d. of Seroquel until can touch base with Seroquel prescriber. Patient will be discharged with leg bag. Recommended close Urology follow-up for remaining workup/trial to void Results discussed with patient including worrisome signs and symptoms and strict return precautions, and when to return to the emergency department. They verbalized understanding and feel safe for discharge at this time. Medical Decision Making Medical Decision Making MDM Narrative: 64-year-old female with a past medical history of dementia presenting to the ED complaining of constipation without BM since Thursday, and urinary retention since 1899 last night. On exam mildly tachycardic, NAD, nontoxic appearing, abdomen soft and nontender. On rectal exam no fecal impaction appreciated. Bladder scan with 939 mL. Concern for constipation vs SBO vs UTI. Rule out mass. No reachable fecal impaction. Lower suspicion for appendicitis/diverticulitis Plan: Labs, UA, Connelly catheter placement, CT AP, re-evaluate Please refer to course for remaining clinical decision making, interpretation of labs/imaging results, and discussions with consultants and/or family members. Differential Diagnosis Differential Diagnoses: The differential diagnosis associated with the presentation includes As above Admission/Observation Consideration of admission/observation: Escalation of care including admission/observation considered Lab Data MDM Lab Attestation statement: I reviewed the patient's lab results. 01/14/25 10:07 01/14/25 10:07 Labs: Lab Results 01/14/25 01/14/25 Range/Units 10:07 10:27 WBC 7.0 (4.8-10.8) X10*3/uL RBC 4.40 (4.20-5.50) X10*6/uL Hgb 13.3 (12.0-16.0) g/dl Hct 39.6 (37.0-47.0) % MCV 90.0 (80.0-98.0) fL MCH 30.2 (27.0-33.0) pg MCHC 33.6 (31.0-35.0) g/dl RDW 12.0 (11.0-16.0) % Plt Count 249 (160-400) X10*3/uL MPV 9.2 L (9.4-12.3) fL Immature Gran % (Auto) 0.4 (0.0-0.4) % Neut % (Auto) 72.9 (45-73) % Lymph % (Auto) 17.8 L (20-40) % Hooker % (Auto) 7.1 (2-11) % Eos % (Auto) 1.1 (0-4) % Baso % (Auto) 0.7 (0-2) % Lymph # (Auto) 1.3 (1.2-4.9) X10*3/uL Hooker # (Auto) 0.5 (0.1-1.2) X10*3/uL Eos # (Auto) 0.1 (0.0-0.4) X10*3/uL Baso # (Auto) 0.1 (0.0-0.2) X10*3/uL Abs Immat Gran (auto) 0.03 (0.00-0.03) X10*3/uL Absolute Neuts (auto) 5.1 (2.0-8.3) x10*3/uL Absolute Nucleated RBC 0.000 (0.0-0.012) X10*3/uL Nucleated RBC % (auto) 0.0 (0.0-0.2) /100WBC Sodium 142 (135-145) mmol/L Potassium 4.5 (3.3-5.1) mmol/L Chloride 109 H (96-108) mmol/L Carbon Dioxide 23 (22-29) mmol/L Anion Gap 15 (12-20) BUN 10 (9-16) mg/dL Creatinine 0.73 (0.5-1.4) mg/dL Estim Creat Clear Calc 95.5 Estimated GFR > 60 Random Glucose 116 H (60-115) mg/dL Calcium 9.1 (8.4-10.2) mg/dL Magnesium 1.9 (1.6-2.6) mg/dL Total Bilirubin 1.1 H (0.0-1.0) mg/dL Direct Bilirubin 0.3 (0.0-0.5) mg/dL AST 21 (5-31) U/L ALT 13 (0-31) U/L Alkaline Phosphatase 62 (39-117) U/L Total Protein 6.5 (6.5-8.0) g/dL Albumin 3.7 (3.5-5.0) g/dL Lipase 10 (8-78) U/L Urine Color Yellow Urine Appearance Clear Urine pH 7.0 (5.0-9.0) Ur Specific Parlin 1.015 (1.005-1.025) Urine Protein Negative (Neg-Trace) mg/dL Urine Glucose (UA) Negative (Negative) mg/dL Urine Ketones Negative (Negative) mg/dL Urine Blood Negative (Negative) Urine Nitrite Negative (Negative) Ur Leukocyte Esterase Negative (Negative) Radiology Impression Discussion of test interpretation with radiology: I have reviewed the radiologist's reading. Independent Historian Clinical information obtained from an independent historian. History obtained from or confirmed by: Spouse External Record Review External record reviewed: Inpatient record, Office record, Outpatient record, Prior outpatient labs, Prior outpatient radiology, Primary care record and Outside ED record Tests considered The following testing was considered but not selected: As above Prescription Management I considered prescription management with: Other Chronic Conditions Patient?s care impacted by: Other (Dementia) Social Determinants Patient?s care significantly limited by Social Determinants of Health including: Other Social Determinant of Health Discharge Plan Discharge Clinical Impression: Acute urinary retention, Compression fx, thoracic spine Patient Disposition: Home, Self-Care Instructions: Vertebral Compression Fracture (ED), Acute Urinary Retention in Women (ED) Additional Instructions: Patient has acute urinary retention, a Connelly catheter was placed. This needs to stay in place until follow-up with Urology. Call 1st thing Thursday morning to make next soonest appointment, about 1 week Please suspected urinary retention as caused by patient's Seroquel. Please go back to 25 mg b.i.d. & Call Seroquel prescriber Continue MiraLax at home If patient is not having a bowel movement in the next 48-72 hours return to the emergency department If Connelly stopped draining, patient has increasing or worsening pain, difficulty or inability to ambulate, fever, vomiting return to the ED Referrals: [facility]Provider Group] - 1 week Jolie Marcelino MD [Primary Care Provider] - 3 days Interventions: ED Discharge Assessment Last Done: 01/14/25 14:28 Discharge Date/Time: 01/14/25 14:29 Print Language: Latvian
[2025-01-14 10:10] VITALS: BP 148/90; PULSE 72; RESP 18; TEMP 36.2; O2SAT 98
[2025-01-14 10:15] LABS: MANUAL DIFF FLAG NO
[2025-01-14 10:17] LABS: Basophils Absolute Auto 0.1 X10*3/uL (0.0-0.2); Basophils Percent Auto 0.7 % (0-2); Eosinophils Absolute Auto 0.1 X10*3/uL (0.0-0.4); Eosinophils Percent Auto 1.1 % (0-4); Hematocrit 39.6 % (37.0-47.0); Hemoglobin 13.3 g/dl (12.0-16.0); Imm Gran Abs Auto 0.03 X10*3/uL (0.00-0.03); Imm Gran Pct Auto 0.4 % (0.0-0.4); Lymphocytes Absolute Auto 1.3 X10*3/uL (1.2-4.9); Lymphocytes Percent Auto 17.8 % (20-40); Mean Corpuscular HGB Conc 33.6 g/dl (31.0-35.0); Mean Corpuscular Hemoglobin 30.2 pg (27.0-33.0); Mean Platelet Volume 9.2 fL (9.4-12.3); Monocytes Absolute Auto 0.5 X10*3/uL (0.1-1.2); Monocytes Percent Auto 7.1 % (2-11); Neutrophils Absolute Auto 5.1 x10*3/uL (2.0-8.3); Neutrophils Percent Auto 72.9 % (45-73); Platelet Count 249 X10*3/uL (160-400)
[2025-01-14 10:38] LABS: Appearance Urine Clear; Color Urine Yellow; Glucose Urine UA Negative (Negative); Leukocyte Esterase Urine Negative (Negative); Nitrite Urine Negative (Negative); Specific Gravity - Urine 1.015 (1.005-1.025); Urine Blood Negative (Negative); Urine Ketones Negative (Negative); Urine Protein Negative (Neg-Trace)
[2025-01-14 10:43] LABS: Alanine Aminotransferase 13 U/L (0-31); Albumin Level 3.7 g/dL (3.5-5.0); Alkaline Phosphatase 62 U/L (39-117); Anion Gap 15 (12-20); Aspartate Amino Transferase 21 U/L (5-31); Bilirubin Direct 0.3 mg/dL (0.0-0.5); Bilirubin Total 1.1 mg/dL (0.0-1.0); Blood Urea Nitrogen 10 mg/dL (9-16); Calcium 9.1 mg/dL (8.4-10.2); Carbon Dioxide 23 mmol/L (22-29); Chloride 109 mmol/L (96-108); Creatinine Clr Calc Pharmacy 95.5; Estimated Glomerular Filt Rate > 60; Glucose Random 116 mg/dL (60-115); Lipase 10 U/L (8-78); Magnesium 1.9 mg/dL (1.6-2.6); Potassium 4.5 mmol/L (3.3-5.1); Sodium 142 mmol/L (135-145); Total Protein 6.5 g/dL (6.5-8.0)
[2025-01-14 12:11] VITALS: BP 146/83; PULSE 100; RESP 16; O2SAT 98
[2025-01-14 14:04] VITALS: BP 146/83; PULSE 100; RESP 16; O2SAT 98
[2025-01-14 14:28] VITALS: BP 146/83; PULSE 100; RESP 16; TEMP 36.5; O2SAT 98
== END 2025-01-14 14:29 | disposition home or self-care (01) ==
PROVIDERS: Physician Assistant; Emergency Provider Emergency Medicine; PCP Internal Medicine
DX: M48.54XA Collapsed vertebra, not elsewhere classified, thoracic region, initial encounter for fracture (principal); R33.9 Retention of urine, unspecified; K59.00 Constipation, unspecified; R00.0 Tachycardia, unspecified
CPT/HCPCS: 36415; 51702; 51798; 74176; 80048; 80076; 81003; 83690; 83735; 85025; 99284; 99285

== ENCOUNTER → 2025-01-14 09:50 | Outpatient (BNV) | payer MEDICARE, OTHER, SELFPAY | PROVIDERS: Emergency Provider Emergency Medicine; PCP Internal Medicine; Visit Provider Radiology Diagnostic Radiology | DX: K80.20 Calculus of gallbladder without cholecystitis without obstruction (principal); N32.89 Other specified disorders of bladder | CPT/HCPCS: 74176 ==

== ENCOUNTER 2025-01-16 19:58 | Emergency (ER) | payer MEDICARE, OTHER, SELFPAY ==
[2025-01-16 20:30] VITALS: BP 133/103; PULSE 106; RESP 18; TEMP 36.5; O2SAT 99; BMI 32.5
--- NOTE | 2025-01-16 20:36 | ED_ITS ---
HPI - Female Genitourinary General Chief complaint: Urogenital-Female Stated complaint: bloody urine/has arteaga catheter Time Seen by Provider: 01/16/25 22:59 Source: family (, Edwardo) Mode of arrival: ambulatory Limitations: no limitations History of Present Illness ED Provider: Dr. Enrrique Augustin HPI Narrative: 64-year-old female with a history of dementia and I arrhythmia who was brought to emergency department by her for evaluation of constipation. Patient was seen in the emergency department on 01/14/2025 for evaluation of constipation. She had a CT scan of the abdomen pelvis without contrast which revealed no bowel obstruction. The patient did have a large stool burden in the ascending colon. Patient also had a markedly enlarged bladder. Patient had a Arteaga catheter placed and she drained over a L of urine out of her bladder. The patient was discharged home with a catheter in place. Patient has not had a bowel movement in a week and she was straining at the stool and the states that sounded like she was urinating around the catheter. When he looked in the toilet bowl there was no stool but there was blood in the stool and possibly some blood in the leg bag. The did contact my Urology group and they told the that the catheter should stay in for at least 4 weeks. The does not think that the patient will be able to keep the catheter in secondary to her dementia. He states she is continuing to pull on the catheter. Related Data Allergies Allergy/AdvReac Type Severity Reaction Status Date / Time No Known Allergies Allergy Verified 01/16/25 20:35 Review of Systems Review of Systems: Yes Unobtainable due to mental status (Dementia) [facility] Social History Social History Advance Directives: No Advance Directives Information Provided: No Physical Exam Vital Signs: Vital Signs: Last Vital Signs Temp 97.8 F 01/17/25 02:40 Pulse 90 01/17/25 02:40 Resp 16 01/17/25 02:40 BP 129/59 L 01/17/25 02:40 Pulse Ox 99 01/17/25 02:40 O2 Del Method Room Air 01/17/25 02:40 BMI result Body Mass Index 32.5 Vital signs revealed an elevated blood pressure of 133/103 with a an elevated heart rate of 106 Exam: General: Awake, alert in no distress, does not answer any questions secondary to her dementia Head: Normocephalic, atraumatic EENT: PERRL, Lids normal, sclera normal, conjunctiva normal, nose normal , ears normal, throat without erythema or exudates Neck: Supple, no adenopathy Lung: breath sounds symmetric, no wheezing, rales or rhonchi Chest: symmetric movement, nontender Heart: regular rate and rhythm, normal S1, S2 no murmurs or rubs Abdomen: soft, moderate suprapubic tenderness, nondistended, normal bowel sounds Rectal: No stool in the rectal vault Back: no vertebral tenderness, no CVAT Extremities: no deformities, moves all extremities symmetrically Neuro: Awake, alert, patient does not answer questions secondary to mental, cranial nerves intact, moves all extremities symmetrically Psych: Pleasant, cooperative Course Course Course Narrative: RME: 64-year-old female with dementia presents to ED for constipation and blood in urine. Patient has a Arteaga placed thing patient has had a put on the Arteaga little bit to caused a cough bloody urine. Patient still has been constipated since last Thursday. Patient is not in distress. Labs UA ordered Medical Decision Making Medical Decision Making MDM Narrative: 64-year-old female with a history of dementia and I arrhythmia who was brought to emergency department by her for evaluation of constipation. Patient was seen in the emergency department on 01/14/2025 for evaluation of constipation. She had a CT scan of the abdomen pelvis without contrast which revealed no bowel obstruction. The patient did have a large stool burden in the ascending colon. Patient also had a markedly enlarged bladder. Patient had a Arteaga catheter placed and she drained over a L of urine out of her bladder. The patient was discharged home with a catheter in place. Patient has not had a bowel movement in a week and she was straining at the stool and the states that sounded like she was urinating around the catheter. When he looked in the toilet bowl there was no stool but there was blood in the stool and possibly some blood in the leg bag. Vital signs revealed an elevated heart rate and elevated blood pressure otherwise unremarkable. Abdominal exam did reveal suprapubic tenderness. Bedside ultrasound done by me revealed 128 cc of urine in her bladder suggesting that the Arteaga catheter is sufficiently draining. No hydronephrosis noted on the left kidney. Right kidney was not visualized. Differential diagnosis: ?Includes but is not limited to urinary retention, hydronephrosis, hematuria secondary to Arteaga catheter, urinary tract infection, lower GI bleed, constipation Course: 23:53 The patient is constipated and did have a large stool burden noted in her ascending colon suggesting that she may have some dysmotility. Rectal exam today revealed no impaction. I did order a urinalysis on the patient as well as a soapsuds enema to see if this relieves he constipation. 02:22 Patient's urinalysis/microscopic revealed trace blood with no evidence of urinary tract infection Patient did have a good bowel movement after the soapsuds enema. was advised to give her extra-strength Senokot 2 pills twice a day for 4 days and this can be repeated weekly as needed. He was also advised to continue giving her Senokot. The is concerned that the patient will pull out the Arteaga catheter and does not think that he can keep it in her for 4 weeks. I told him to contact the urology group again to see if they can remove the catheter in the next 2-4 days and if this is not possible, either an urgent care or the ED can remove the catheter. Admission/Observation Consideration of admission/observation: Escalation of care including admission/observation considered (No) Lab Data MDM Lab Attestation statement: I reviewed the patient's lab results. Labs: Lab Results 01/16/25 Range/Units 23:51 Urine Color Yellow Urine Appearance Clear Urine pH 6.5 (5.0-9.0) Ur Specific [place] <= 1.005 (1.005-1.025) Urine Protein Trace (Neg-Trace) mg/dL Urine Glucose (UA) Negative (Negative) mg/dL Urine Ketones Negative (Negative) mg/dL Urine Blood Large (3+) H (Negative) Urine Nitrite Negative (Negative) Ur Leukocyte Esterase Trace H (Negative) Urine RBC 0-2 (0-2) /HPF Urine WBC 0-5 (0-5) /HPF Ur Squamous Epith Cells 0-2 (0-2) /HPF Urine Bacteria None Seen (None Seen) Hyaline Casts 0-2 (0-2) /LPF Independent Historian Clinical information obtained from an independent historian. History obtained from or confirmed by: Spouse Prescription Management I considered prescription management with: Other (Dementia) Discharge Plan Discharge Clinical Impression: Constipation, Hematuria Patient Disposition: Home, Self-Care Instructions: Colonoscopy (DC) Additional Instructions: Your urinalysis did reveal a trace amount of blood but no evidence for urinary tract infection which is reassuring. You were given a soapsuds enema and you did have a good bowel movement. Take extra-strength Senokot 2 tablets twice a day for 4 days. This medication is a laxative and should help you move your bowels. You can repeat this dose 1 week later as needed for constipation. Ask the pharmacist if this comes in a liquid form or if you can crush the pills. Call the urologist to get these Arteaga catheter out in 4 days (total since incision). Tell them that has dementia and you are concerned that she is going to pull out the catheter and can not keep it in for 4 weeks. If the urologist will not remove the catheter, then call an urgent care clinic to see if they can remove the catheter and if they are not able then return to the emergency department and we will remove the catheter. Continue her medications as prescribed by her providers Follow-up with your doctor in 2 days. Please return to the emergency department if your symptoms get worse or if you develop any symptoms that are concerning to you. Interventions: ED Discharge Assessment Last Done: 01/17/25 02:40 Discharge Date/Time: 01/17/25 03:04 Print Language: Yi
[2025-01-16 23:49] VITALS: BP 129/59; PULSE 90; RESP 16; TEMP 36.6; O2SAT 99
[2025-01-17 00:07] LABS: Appearance Urine Clear; Color Urine Yellow; Glucose Urine UA Negative (Negative); Leukocyte Esterase Urine Trace (Negative); Nitrite Urine Negative (Negative); PH 6.5 (5.0-9.0); Specific Gravity - Urine <= 1.005 (1.005-1.025); UMIC TRIGGER UACC YES; Urine Blood Large (3+) (Negative); Urine Ketones Negative (Negative); Urine Protein Trace mg/dL (Neg-Trace)
[2025-01-17 00:15] LABS: Bacteria Urine None Seen (None Seen); Hyaline Casts Urine 0-2 /LPF (0-2); RBC Urine 0-2 /HPF (0-2); Squamous Epithelial Cell Urine 0-2 /HPF (0-2); WBC Urine 0-5 /HPF (0-5)
--- NOTE | 2025-01-17 01:23 | PC.NURSE ---
Addendum entered by Laura Osorio 01/17/25 02:09: Enema given with positive effect, liquid stool. Provider made aware. Original Note: Soap suds enema given per order. Pt tolerated fair with staff assist.
[2025-01-17 02:40] VITALS: BP 129/59; PULSE 90; RESP 16; TEMP 36.6; O2SAT 99
== END 2025-01-17 03:04 | disposition home or self-care (01) ==
PROVIDERS: Emergency Provider Emergency Medicine Emergency Medical Services; PCP Internal Medicine
DX: K59.00 Constipation, unspecified (principal); R31.9 Hematuria, unspecified; F03.90 Unspecified dementia, unspecified severity, without behavioral disturbance, psychotic disturbance, mood disturbance, and anxiety
CPT/HCPCS: 81001; 99283; 99284

== ENCOUNTER 2025-01-20 09:41 | Emergency (ER) | payer MEDICARE, OTHER, SELFPAY ==
--- NOTE | ~2025-01-20 | XR_ITS ---
EXAMINATION: XR CHEST CLINICAL INFORMATION: rule out TB COMPARISON: None available. TECHNIQUE: Frontal view of the chest was obtained. FINDINGS: Linear opacities in the lower hemithoraces. No gross pleural effusion or pneumothorax. There is a left-sided breast prosthesis overlapping the left lower hemithorax. Cardiomediastinal silhouette size is normal. Multilevel thoracic spondylosis. S-shaped curvature of the thoracolumbar spine. Degenerative changes in the acromioclavicular joints. XR/XR chest 1V IMPRESSION: Subsegmental atelectasis versus scarring, lung bases. Scoliosis. Spondylosis. Electronically signed by: Carrington Boyer MD 01/20/2025 11:47 AM EDT
[2025-01-20 09:49] VITALS: BP 155/86; PULSE 105; RESP 18; TEMP 36.1; O2SAT 98; BMI 27.3
[2025-01-20 10:15] VITALS: BP 115/69; PULSE 91; RESP 13; TEMP 36.3; O2SAT 97
--- NOTE | 2025-01-20 10:36 | ED_ITS ---
HPI - Female Genitourinary General Chief complaint: Urogenital-Female Stated complaint: Cathetor Removal Time Seen by Provider: 01/20/25 10:36 Source: family, RN notes reviewed, old records reviewed and other ( ) Mode of arrival: ambulatory Limitations: altered mental status History of Present Illness ED Provider: Maria Alejandra Dawkins PA-C HPI Narrative: Patient is brought in to the emergency department today by her . Patient's has dementia and is a poor historian. She was seen here both on the as well as the for constipation in the last day was found to have urinar y retention. She had a Connelly catheter placed in the ED and was advised to have it removed in 4 days secondary to her having dementia and pulling on it versus waiting for weeks to have it removed with Urology. As Urology is not able to see her sooner and she can not have an urgent care or PCP remove it she is brought back here today. One hundred reporting that he sees her touch it a little bit but he is not sure whether or not she is doing so because of pain versus just a foreign body sensation. He is her sole caregiver 06/04. Patient's spouse reports that he has been draining the catheter at least twice a day last time he did it was prior to coming here just noticing yellow urine only no blood. No changes in behavior at home or fevers. No concerns for constipation today. [facility] next Thursday however he is requesting paperwork to be done as a PCP is not able to do this soon. She requires TB screen for [facility]. Will order xray for here. No respiratory sxs. MD elicited complaint: other (Catheter in place requesting removal) Related Data Allergies Allergy/AdvReac Type Severity Reaction Status Date / Time No Known Allergies Allergy Verified 01/20/25 09:52 Review of Systems Review of Systems: Yes Unobtainable due to mental status [facility] Past Medical History Attestation statement: The following information was validated with the patient. (spouse) [facility] Narrative: Following information was validated with the patient's spouse. History of frontotemporal lobe dementia advanced over the past 6 months history of AFib ablation done 1 year ago still takes Eliquis but no rate control. Source: old records reviewed, obtained from family and nursing notes reviewed Physical Exam Vital Signs: Vital Signs: Last Vital Signs Temp 97.5 F 01/20/25 12:33 Pulse 90 01/20/25 12:33 Resp 18 01/20/25 12:33 BP 148/99 H 01/20/25 12:33 Pulse Ox 99 01/20/25 12:33 O2 Del Method Room Air 01/20/25 12:33 BMI result Body Mass Index 27.3 Const: General: cooperative, healthy appearing, comfortable and no acute distress Nutritional Appearance: well nourished Orientation/consciousness: oriented to person and oriented to place Limitations: altered mental status HEENT: Head: Yes normal to inspection and Yes No palpable skull fracture present General nose exam: Normal external nose present Face and sinus: Yes normal facial exam Mouth: Normal oral and palatal mucosa present and lip normal Eyes: General: appearance normal, both eyes and all related structures Sclerae: sclerae normal Corneas: corneas normal Pupils: Equal, round and reactive pupils present Resp: Effort & Inspection: normal respiratory effort and able to speak in complete sentences Auscultation: clear to auscultation bilaterally Cardio: Jugular venous distension: no JVD Rate: regular rate GI: Inspection: Yes normal to inspection Percussion: Yes normal to percussion Auscultation: normal bowel sounds : Other: Urinary catheter in place, removed approximately 9.5 cc of fluid removed without any difficulty no continue discharge or odor, urine appears light yellow External Female Exam: normal external appearance Skin: General skin exam: no rashes or lesions noted Neuro: General: oriented to person and oriented to place Cranial nerves: Y es Equal, round and reactive pupils present Medical Decision Making Medical Decision Making MDM Narrative: Well-appearing 64-year-old female with advanced dementia of the frontal temporal lobe type presenting to ED today for Connelly catheter removal. She was seen here for both constipation as well as urinary retention few days back. She has a catheter in place. Due to history of dementia and tugging on catheter urology was not able to see patients sooner for removal so came here. This was removed without any difficulty. Urine screen for infection as with patient's history of dementia she would be a poor historian but no evidence for UTI. She was able to void approximately 400 cc of urine this was done by both pre and post bladder scanning. Patient required paperwork to go to an assisted living facility next Thursday I feel this out with the spouse along with a MOLST form. He is her healthcare proxy. She was screened for TB due to being transferred to a assisted living facility x-ray without evidence of this. No further workup was indicated here today patient is otherwise well-appearing back to her baseline plans for assisted living facility transfer next Thursday will take care of her until then and return for any acute concerns. Differential Diagnosis Differential Diagnoses: The differential diagnosis associated with the presentation includes UTI, retention, self-harm secondary to dementia Admission/Observation Consideration of admission/observation: Escalation of care including admission/observation considered Patient would have been admitted to the hospital had [his/her/their] work up had any findings where hospital admission was appropriate and [his/her/their] clinical presentation warranted hospital admission. Lab Data MDM Lab Attestation statement: I reviewed the patient's lab results. Labs: Lab Results 01/20/25 Range/Units 11:04 Urine Color Yellow Urine Appearance Turbid Urine pH 6.5 (5.0-9.0) Ur Specific [place] 1.010 (1.005-1.025) Urine Protein 100 (2+) H (Neg-Trace) mg/dL Urine Glucose (UA) Negative (Negative) mg/dL Urine Ketones Negative (Negative) mg/dL Urine Blood Large (3+) H (Negative) Urine Nitrite Positive H (Negative) Ur Leukocyte Esterase Large (3+) H (Negative) Urine RBC >20 H (0-2) /HPF Urine WBC >50 H (0-5) /HPF Urine WBC Clumps Present Ur Squamous Epith Cells 0-2 (0-2) /HPF Calcium Oxalate Crystal Present Urine Bacteria 4+ (None Seen) Hyaline Casts 0-2 (0-2) /LPF Independent Historian Clinical information obtained from an independent historian. History obtained from or confirmed by: Spouse Tests considered The following testing was considered but not selected: Would have considered further workup had patient's mental status has been altered more than her baseline. Prescription Management I considered prescription management with: Antibiotic Would have considered antibiotic had urine showed infection Chronic Conditions Patient?s care impacted by: Other Dementia not able to give her own review of system answers Discharge Plan Discharge Clinical Impression: Encounter for removal of urinary catheter Dementia Qualifiers: Dementia type: other frontotemporal dementia Dementia severity: moderate Dementia behavioral or psychological symptom: with anxiety Qualified Code(s): G31.09 - Other frontotemporal neurocognitive disorder Patient Disposition: Home, Self-Care Instructions: Connelly Catheter Removal (DC) Additional Instructions: The urinary catheter was removed today you were able to void regularly after this removal showing no evidence of retention or the inability to pass urine. We filled out a [facility] form while here as well as your assisted-living facility paperwork. Your chest x-ray today showed no evidence of tuberculosis. The facility might require that you give them your COVID vaccination history as I do not have access to this. Referrals: Jolie Marcelino MD [Primary Care Provider] - Interventions: ED Discharge Assessment Last Done: 01/20/25 12:33 Discharge Date/Time: 01/20/25 12:33 Print Language: Tajik
--- OUTSIDE RECORDS SUMMARY | 2025-01-20 10:44 | XMS_ITS | Encounter Summary ---
Author Organization [facility] Address [address] [place] [address] Care Team Providers Care Industrial Health And Safety Professor Name Role Phone Ciera Pierce MD Primary Care Provider [phone] Cristina Fournier DO Primary Care Provider [phone] Encounter Details Date Type Department Care Team (Late st Contact Info) Description 08/24/2014 Scanned Document [address] [phone] Provider, Generic Social History Tobacco Use Types [...] on filedocumented in this encounter Care Teams Industrial Health And Safety Professor Relationship Specialty Start Date End Date Ciera Pierce MD PCP - General Internal Medicine 06/01/15 07/03/16 Cristina Fournier DO PCP - General Family Medicine 07/04/16 09/21/17 documented as of this encounter
--- OUTSIDE RECORDS SUMMARY | 2025-01-20 10:44 | XMS_ITS | Encounter Summary ---
Author Organization [facility] Address [address] [place] [address] Care Team Providers Care World Geography Teacher Name Role Phone Ciera Pierce MD Primary Care Provider [phone] Cristina Fournier DO Primary Care Provider [phone] Encounter Details Date Type Department Care Team (Late st Contact Info) Description 08/24/2014 Scanned Document [address] [phone] Provider, Generic Social History Tobacco Use Types [...] on filedocumented in this encounter Care Teams World Geography Teacher Relationship Specialty Start Date End Date Ciera Pierce MD PCP - General Internal Medicine 06/01/15 07/03/16 Cristina Fournier DO PCP - General Family Medicine 07/04/16 09/21/17 documented as of this encounter
--- OUTSIDE RECORDS SUMMARY | 2025-01-20 10:44 | XMS_ITS | Encounter Summary ---
Author Organization [facility] Address [address] [place] [address] Care Team Providers Care Field Marketing Specialist Name Role Phone Cristina Fournier DO Primary Care Provider Encounter Details Date Type Department Care Team (Late st Contact Info) Description 09/25/2016 Scanned Document [address] [phone] Provider, Generic Social History Tobacco [...] on filedocumented in this encounter Care Teams Field Marketing Specialist Relationship Specialty Start Date End Date Cristina Fournier DO PCP - General Family Medicine 07/04/16 09/21/17 documented as of this encounter
--- OUTSIDE RECORDS SUMMARY | 2025-01-20 10:44 | XMS_ITS | Encounter Summary ---
Author Organization [facility] Address [address] [place] [address] Care Team Providers Care Living Specialist Name Role Phone Cristina Fournier DO Primary Care Provider [phone] Encounter Details Date Type Department Care Team (Late st Contact Info) Description 08/24/2017 Scanned Document [address] [phone] Provider, Generic Social History Tobacco [...] on filedocumented in this encounter Care Teams Living Specialist Relationship Specialty Start Date End Date Cristina Fournier DO PCP - General Family Medicine 07/04/16 09/21/17 documented as of this encounter
--- OUTSIDE RECORDS SUMMARY | 2025-01-20 10:44 | XMS_ITS | Encounter Summary ---
Author Organization [facility] Address [address] [place] [address] Care Team Providers Care Knit Goods Washer Name Role Phone Cristina Fournier DO Primary Care Provider [phone] Encounter Details Date Type Department Care Team (Late st Contact Info) Description 07/11/2016 Scanned Document [address] [phone] Cristina Fournier DO [address] [place] [address] Social History Tobacco Use Types Packs/Day Years [...] on filedocumented in this encounter Care Teams Knit Goods Washer Relationship Specialty Start Date End Date Cristina Fournier DO PCP - General Family Medicine 07/04/16 09/21/17 documented as of this encounter
--- OUTSIDE RECORDS SUMMARY | 2025-01-20 10:44 | XMS_ITS | Encounter Summary ---
Author Organization [facility] Address [address] [place] [address] Care Team Providers Care Analysis Evaluator Name Role Phone Ciera Pierce MD Primary Care Provider [phone] Cristina Fournier DO Primary Care Provider [phone] Encounter Details Date Type Department Care Team (Late st Contact Info) Description 08/24/2014 Scanned Document [address] [phone] Provider, Generic Social History Tobacco Use Types [...] on filedocumented in this encounter Care Teams Analysis Evaluator Relationship Specialty Start Date End Date Ciera Pierce MD PCP - General Internal Medicine 06/01/15 07/03/16 Cristina Fournier DO PCP - General Family Medicine 07/04/16 09/21/17 documented as of this encounter
--- OUTSIDE RECORDS SUMMARY | 2025-01-20 10:44 | XMS_ITS | Encounter Summary ---
Author Organization [facility] Address [address] [id number] Care Team Providers Care Wildlife Biologist Name Role Phone Ciera Pierce MD Primary Care Provider [phone] Cristina Fournier DO Primary Care Provider [phone] Encounter Details Date Type Department Care Team (Late st Contact Info) Description 08/20/[address] [phone] Ciera Pierce MD [address] [place] [address] [place] [phone] Social History Tobacco Use Types Packs/Day Years [...] A NEW MEDICATION CERFOLIN NAC. PLEASE CALL [phone] documented in this encounter Plan of Treatment Not on file documented as of this encounter Visit Diagnoses Not on filedocumented in this encounter Care Teams Wildlife Biologist Relationship Specialty Start Date End Date Ciera Pierce MD PCP - General Internal Medicine 06/01/15 07/03/16 Cristina Fournier DO PCP - General Family Medicine 07/04/16 09/21/17 documented as of this encounter
--- OUTSIDE RECORDS SUMMARY | 2025-01-20 10:44 | XMS_ITS | Encounter Summary ---
Author Organization [facility] Address [address] [id number] Care Team Providers Care Supervisor Hanging And Trimming Name Role Phone Cristina Fournier Primary Care Provider [phone] Reason for Visit * Reason Onset Date Comments Medication Problem 07/04/2016 Encounter Details Date Type Department Care Team (Late st Contact Info) Description 07/04/[address] [phone] Ciera Pierce MD [address] [place] [address] [place] [phone] Medication Problem Social History Tobacco Use Types [...] filedocumented in this encounter Care Teams Supervisor Hanging And Trimming Relationship Specialty Start Date End Date Cristina Fournier DO PCP - General Family Medicine 07/04/16 09/21/17 documented as of this encounter
--- OUTSIDE RECORDS SUMMARY | 2025-01-20 10:44 | XMS_ITS | Encounter Summary ---
Author Organization [facility] Address [address] [place] [address] Care Team Providers Care Baker Bench Name Role Phone Ciera Pierce MD Primary Care Provider [phone] Cristina Fournier DO Primary Care Provider [phone] Reason for Visit * Reason Comments Medication Refill Encounter Details Date Type Department Care Team (Late st Contact Info) Description 04/22/[address] [phone] Ciera Pierce MD [address] [place] [address] [place] [address] [phone] Depression Social History Tobacco Use Types Packs/Day [...] classified documented in this encounter Care Teams Baker Bench Relationship Specialty Start Date End Date Ciera Pierce MD PCP - General Internal Medicine 06/01/15 07/03/16 Cristina Fournier DO PCP - General Family Medicine 07/04/16 09/21/17 documented as of this encounter
--- OUTSIDE RECORDS SUMMARY | 2025-01-20 10:44 | XMS_ITS | Encounter Summary ---
Author Organization [facility] Address [address] [place] [address] Care Team Providers Care Marketing Systems Manager Name Role Phone Cristina Fournier DO Primary Care Provider [phone] Encounter Details Date Type Department Care Team (Late st Contact Info) Description 09/05/2016 Scanned Document [address] [phone] Cristina Fournier DO [address] [place] [address] Social History Tobacco Use Types Packs/Day Years [...] on filedocumented in this encounter Care Teams Marketing Systems Manager Relationship Specialty Start Date End Date Cristina Fournier DO PCP - General Family Medicine 07/04/16 09/21/17 documented as of this encounter
--- OUTSIDE RECORDS SUMMARY | 2025-01-20 10:44 | XMS_ITS | Encounter Summary ---
Author Organization [facility] Address [address] [place] [address] Care Team Providers Care Residential Sales Manager Name Role Phone Ciera Pierce MD Primary Care Provider [phone] Cristina Fournier DO Primary Care Provider [phone] Encounter Details Date Type Department Care Team (Late st Contact Info) Description 08/24/2014 Scanned Document [address] [phone] Provider, Generic Social History Tobacco Use Types [...] on filedocumented in this encounter Care Teams Residential Sales Manager Relationship Specialty Start Date End Date Ciera Pierce MD PCP - General Internal Medicine 06/01/15 07/03/16 Cristina Fournier DO PCP - General Family Medicine 07/04/16 09/21/17 documented as of this encounter
--- OUTSIDE RECORDS SUMMARY | 2025-01-20 10:44 | XMS_ITS | Encounter Summary ---
Author Organization [facility] Address [address] [place] [address] Care Team Providers Care Biodiesel Division Manager Name Role Phone Ciera Pierce MD Primary Care Provider [phone] Cristina Fournier DO Primary Care Provider [phone] Encounter Details Date Type Department Care Team (Late st Contact Info) Description 07/12/2015 Scanned Document [address] [phone] Provider, Generic Social History Tobacco Use Types [...] on filedocumented in this encounter Care Teams Biodiesel Division Manager Relationship Specialty Start Date End Date Ciera Pierce MD PCP - General Internal Medicine 06/01/15 07/03/16 Cristina Fournier DO PCP - General Family Medicine 07/04/16 09/21/17 documented as of this encounter
--- OUTSIDE RECORDS SUMMARY | 2025-01-20 10:44 | XMS_ITS | Clinical Summary ---
Author Organization [facility] Address [address] [place] [address] Care Team Providers Care Event Services Manager Name Role Phone Unavailable Primary Care Provider [...] 81 mg by mouth daily. Active L-Methylfolate- [id number] (CEREFOLIN) 6-1-50-5 MG TabIndications: Memory loss TAKE [...] Comments IMAGING BREAST/BX/MAMMO 07/04/2016 THINPREP PAP TEST (SHEEP KILLER) WITH HPV SCREEN Routine 10/02/2014 4:51 PM EST from Last 3 Months or Most Recently Relevant to Health Maintenance Results * IMAGING BREAST/BX/MAMMO (07/04/2016) Anatomical Region Laterality Modality Other Narrative 07/05/2016 6:54 AM EDT Ordered by an unspecified provider. us Generic Provider IMG LEGACY PROCEDURES Edited Re sult - Final * ThinPrep Pap Test (Community Health Nurse) with HPV Screen (10/02/2014 4:51 PM EST) [...] LIQUID BASED SPECIMENS IS PERFORMED BY THE [employer] IMAGING SYSTEM OR FOCALPOINT, UNLESS OTHERWISE STATED. THE PAP TEST IS A SCREENING TEST WITH AN INHERENT FALSE NEGATIVE RATE. UNLESS NOTED, THIS CASE WAS SCREENED AT [facility], [place] [address] CT REG # [id number]. ?? 10/02/2014 4:51 PM EST us Ciera Pierce MD LAB AMB PATH/CYTO ORDERABLE S Edited Result - Final ALLSCRIPTS CONVERSION from Last 3 Months or Most Recently Relevant to Health Maintenance Insurance [facility] [place] [id number]
--- OUTSIDE RECORDS SUMMARY | 2025-01-20 10:44 | XMS_ITS | Encounter Summary ---
Author Organization [facility] Address [address] [place] [address] Care Team Providers Care Authorizer Name Role Phone Ciera Pierce MD Primary Care Provider [phone] Cristina Fournier DO Primary Care Provider [phone] Encounter Details Date Type Department Care Team (Late st Contact Info) Description 08/24/2014 Scanned Document [address] [phone] Provider, Generic Social History Tobacco Use Types [...] on filedocumented in this encounter Care Teams Authorizer Relationship Specialty Start Date End Date Ciera Pierce MD PCP - General Internal Medicine 06/01/15 07/03/16 Cristina Fournier DO PCP - General Family Medicine 07/04/16 09/21/17 documented as of this encounter
--- OUTSIDE RECORDS SUMMARY | 2025-01-20 10:44 | XMS_ITS | Encounter Summary ---
Author Organization [facility] Address [address] [place] [address] Care Team Providers Care Compliance Reviewer Name Role Phone Cristina Fournier DO Primary Care Provider [phone] Encounter Details Date Type Department Care Team (Late st Contact Info) Description 08/24/2017 Scanned Document [address] [phone] Provider, Generic Social History Tobacco [...] filedocumented in this encounter Care Teams Compliance Reviewer Relationship Specialty Start Date End Date Cristina Fournier DO PCP - General Family Medicine 07/04/16 09/21/17 documented as of this encounter
--- OUTSIDE RECORDS SUMMARY | 2025-01-20 10:44 | XMS_ITS | Encounter Summary ---
Author Organization [facility] Address [address] [place] [address] Care Team Providers Care Health And Wellness Coach Name Role Phone Ciera Pierce MD Primary Care Provider [phone] Cristina Fournier DO Primary Care Provider [phone] Encounter Details Date Type Department Care Team (Late st Contact Info) Description 08/24/2014 Scanned Document [address] [phone] Provider, Generic Social History Tobacco Use Types [...] on filedocumented in this encounter Care Teams Health And Wellness Coach Relationship Specialty Start Date End Date Ciera Pierce MD PCP - General Internal Medicine 06/01/15 07/03/16 Cristina Fournier DO PCP - General Family Medicine 07/04/16 09/21/17 documented as of this encounter
--- OUTSIDE RECORDS SUMMARY | 2025-01-20 10:44 | XMS_ITS | Encounter Summary ---
Author Organization [facility] Address [address] [place] [address] Care Team Providers Care Range Rider Name Role Phone Cristina Fournier DO Primary Care Provider [phone] Encounter Details Date Type Department Care Team (Late st Contact Info) Description 07/04/2016 Scanned Document [address] [phone] Provider, Generic Social History Tobacco Use Types [...] on filedocumented in this encounter Care Teams Range Rider Relationship Specialty Start Date End Date Cristina Fournier DO PCP - General Family Medicine 07/04/16 09/21/17 documented as of this encounter
--- OUTSIDE RECORDS SUMMARY | 2025-01-20 10:44 | XMS_ITS | Encounter Summary ---
Author Organization [facility] Address [address] [place] [address] Care Team Providers Care Forestry Adviser Name Role Phone Ciera Pierce MD Primary Care Provider [phone] Cristina Fournier DO Primary Care Provider [phone] Encounter Details Date Type Department Care Team (Late st Contact Info) Description 08/24/2014 Scanned Document [address] [phone] Provider, Generic Social History Tobacco Use Types [...] on filedocumented in this encounter Care Teams Forestry Adviser Relationship Specialty Start Date End Date Ciera Pierce MD PCP - General Internal Medicine 06/01/15 07/03/16 Cristina Fournier DO PCP - General Family Medicine 07/04/16 09/21/17 documented as of this encounter
--- OUTSIDE RECORDS SUMMARY | 2025-01-20 10:44 | XMS_ITS | Encounter Summary ---
Author Organization [facility] Address [address] [place] [address] Care Team Providers Care Hydrology Teacher Name Role Phone Ciera Pierce MD Primary Care Provider [phone] Cristina Fournier DO Primary Care Provider [phone] Encounter Details Date Type Department Care Team (Late st Contact Info) Description 08/24/2014 Scanned Document [address] [phone] Provider, Generic Social History Tobacco Use Types [...] on filedocumented in this encounter Care Teams Hydrology Teacher Relationship Specialty Start Date End Date Ciera Pierce MD PCP - General Internal Medicine 06/01/15 07/03/16 Cristina Fournier DO PCP - General Family Medicine 07/04/16 09/21/17 documented as of this encounter
--- OUTSIDE RECORDS SUMMARY | 2025-01-20 10:44 | XMS_ITS | Encounter Summary ---
Author Organization [facility] Address [address] [place] [address] Care Team Providers Care Help Desk Operator Name Role Phone Ciera Pierce MD Primary Care Provider [phone] Cristina Fournier DO Primary Care Provider [phone] Encounter Details Date Type Department Care Team (Late st Contact Info) Description 08/24/2014 Scanned Document [address] [phone] Provider, Generic Social History Tobacco Use Types [...] on filedocumented in this encounter Care Teams Help Desk Operator Relationship Specialty Start Date End Date Ciera Pierce MD PCP - General Internal Medicine 06/01/15 07/03/16 Cristina Fournier DO PCP - General Family Medicine 07/04/16 09/21/17 documented as of this encounter
--- OUTSIDE RECORDS SUMMARY | 2025-01-20 10:44 | XMS_ITS | Encounter Summary ---
Author Organization [facility] Address [address] [place], [place] [id number] Care Team Providers Care Stone Cutter Name Role Phone Cristina Fournier DO Primary Care Provider Encounter Details Date Type Department Care Team (Late st Contact Info) Description 07/31/2016 Scanned Document [address] [phone] Cristina Fournier, DO [address] [place] [address] Social History Tobacco Use Types Packs/Day Years [...] on filedocumented in this encounter Care Teams Stone Cutter Relationship Specialty Start Date End Date Cristina Fournier DO PCP - General Family Medicine 07/04/16 09/21/17 documented as of this encounter
--- OUTSIDE RECORDS SUMMARY | 2025-01-20 10:44 | XMS_ITS | Encounter Summary ---
Author Organization [facility] Address [address] [place] [address] Care Team Providers Care Print Project Manager Name Role Phone Ciera Pierce MD Primary Care Provider [phone] Cristina Fournier DO Primary Care Provider [phone] Encounter Details Date Type Department Care Team (Late st Contact Info) Description 04/23/2015 Scanned Document [address] [phone] Provider, Generic Social History Tobacco Use Types [...] on filedocumented in this encounter Care Teams Print Project Manager Relationship Specialty Start Date End Date Ciera Pierce MD PCP - General Internal Medicine 06/01/15 07/03/16 Cristina Fournier DO PCP - General Family Medicine 07/04/16 09/21/17 documented as of this encounter
--- OUTSIDE RECORDS SUMMARY | 2025-01-20 10:44 | XMS_ITS | Encounter Summary ---
Author Organization [facility] Address [address] [place] [address] Care Team Providers Care Machine Filler Shredder Name Role Phone Cristina Fournier DO Primary Care Provider [phone] Encounter Details Date Type Department Care Team (Late st Contact Info) Description 07/11/2016 Scanned Document [address] [phone] Cristina Fournier DO [address] [place] [address] Social History Tobacco Use Types Packs/Day Years [...] on filedocumented in this encounter Care Teams Machine Filler Shredder Relationship Specialty Start Date End Date Cristina Fournier DO PCP - General Family Medicine 07/04/16 09/21/17 documented as of this encounter
--- OUTSIDE RECORDS SUMMARY | 2025-01-20 10:44 | XMS_ITS | Clinical Summary ---
Author Organization [facility] Address [address] [place] [address] Care Team Providers Care Insight Director Name Role Phone Nirav Ruiz Primary Care [...] ( - 2023-2 5 season) 2024 Influenza (#1) 2024 RSV (1 - 1-dose 75+ series) 2034 [...] Smear Discontinued Zoster (Zostavax) Discontinued Care Teams Insight Director Relationship Specialty Start Date End Date Nirav Ruiz PCP - General 04/20/23
--- OUTSIDE RECORDS SUMMARY | 2025-01-20 10:44 | XMS_ITS | Encounter Summary ---
Author Organization [facility] Address [address] [place] [address] Care Team Providers Care Prototyper Name Role Phone Ciera Pierce MD Primary Care Provider [phone] Cristina Fournier DO Primary Care Provider [phone] Encounter Details Date Type Department Care Team (Late st Contact Info) Description 08/24/2014 Scanned Document [address] [phone] Provider, Generic Social History Tobacco Use Types [...] on filedocumented in this encounter Care Teams Prototyper Relationship Specialty Start Date End Date Ciera Pierce MD PCP - General Internal Medicine 06/01/15 07/03/16 Cristina Fournier DO PCP - General Family Medicine 07/04/16 09/21/17 documented as of this encounter
--- OUTSIDE RECORDS SUMMARY | 2025-01-20 10:44 | XMS_ITS | Encounter Summary ---
Author Organization [facility] Address [address] [place] [address] Care Team Providers Care Zone Maintenance Technician Name Role Phone Ciera Pierce MD Primary Care Provider [phone] Cristina Fournier DO Primary Care Provider [phone] Encounter Details Date Type Department Care Team (Late st Contact Info) Description 08/24/2014 Scanned Document [address] [phone] Provider, Generic Social History Tobacco Use Types [...] on filedocumented in this encounter Care Teams Zone Maintenance Technician Relationship Specialty Start Date End Date Ciera Pierec MD PCP - General Internal Medicine 06/01/15 07/03/16 Cristina Fournier DO PCP - General Family Medicine 07/04/16 09/21/17 documented as of this encounter
--- OUTSIDE RECORDS SUMMARY | 2025-01-20 10:44 | XMS_ITS | Encounter Summary ---
Author Organization [facility] Address [address] [place] [address] Care Team Providers Care Medicine Assistant Name Role Phone Ciera Pierce MD Primary Care Provider [phone] Cristina Fournier DO Primary Care Provider [phone] Encounter Details Date Type Department Care Team (Late st Contact Info) Description 08/24/2014 Scanned Document [address] [phone] Provider, Generic Social History Tobacco Use Types [...] on filedocumented in this encounter Care Teams Medicine Assistant Relationship Specialty Start Date End Date Ciera Pierce MD PCP - General Internal Medicine 06/01/15 07/03/16 Cristina Fournier DO PCP - General Family Medicine 07/04/16 09/21/17 documented as of this encounter
--- OUTSIDE RECORDS SUMMARY | 2025-01-20 10:44 | XMS_ITS | Encounter Summary ---
Author Organization [facility] Address [address] [place] [address] Care Team Providers Care Tan Room Supervisor Name Role Phone Ciera Pierce MD Primary Care Provider [phone] Cristina Fournier DO Primary Care Provider [phone] Encounter Details Date Type Department Care Team (Late st Contact Info) Description 08/24/2014 Scanned Document [address] [phone] Provider, Generic Social History Tobacco Use Types [...] on filedocumented in this encounter Care Teams Tan Room Supervisor Relationship Specialty Start Date End Date Ciera Pierce MD PCP - General Internal Medicine 06/01/15 07/03/16 Cristina Fournier DO PCP - General Family Medicine 07/04/16 09/21/17 documented as of this encounter
--- OUTSIDE RECORDS SUMMARY | 2025-01-20 10:45 | XMS_ITS | Clinical Summary ---
Author Organization [facility] Address [address] [place] [address] Care Team Providers Care Access Rn Name Role Phone Shantanu Cristina Victor Hugo ELIZABETH Primary Care Provider Social History Tobacco Use Types Packs/Day Years [...] Advance Directives For more information, please contact: [phone] Documents on File Type Date Recorded Patient Pipe Washer Expl anation Advance Directive and Living Will 07/04/2016 8:40 AM Will Care Teams Access Rn Relationship Specialty Start Date End Date Cristina Fournier DO [address] [place] [phone] PCP - General Family Medicine 07/04/16
--- OUTSIDE RECORDS SUMMARY | 2025-01-20 10:45 | XMS_ITS | Encounter Summary ---
Author Organization [facility] Address [address] [place] [address] Care Team Providers Care Flask Fitter Name Role Phone Ciera Pierce MD Primary Care Provider [phone] Cristina Fournier DO Primary Care Provider [phone] Encounter Details Date Type Department Care Team (Late st Contact Info) Description 11/08/2015 Scanned Document [address] [phone] Provider, Generic Social History Tobacco [...] on filedocumented in this encounter Care Teams Flask Fitter Relationship Specialty Start Date End Date Ciera Pierce MD PCP - General Internal Medicine 06/01/15 07/03/16 Cristina Fournier DO PCP - General Family Medicine 07/04/16 09/21/17 documented as of this encounter
[2025-01-20 11:11] LABS: Appearance Urine Turbid; Color Urine Yellow; Glucose Urine UA Negative (Negative); Leukocyte Esterase Urine Large (3+) (Negative); Nitrite Urine Positive (Negative); PH 6.5 (5.0-9.0); UMIC TRIGGER UACC YES; Urine Blood Large (3+) (Negative); Urine Ketones Negative (Negative); Urine Protein 100 (2+) mg/dL (Neg-Trace)
[2025-01-20 11:42] LABS: Bacteria Urine 4+ (None Seen); Calcium Oxalate Crystals Urine Present; Hyaline Casts Urine 0-2 /LPF (0-2); RBC Urine >20 /HPF (0-2); Squamous Epithelial Cell Urine 0-2 /HPF (0-2); UACC Culture Trigger YES; WBC Clumps Urine Present; WBC Urine >50 /HPF (0-5)
--- NOTE | 2025-01-20 11:59 | PC.NURSE ---
arteaga removed. after 1 hour, pt voided 400ml urine
[2025-01-20 12:23] VITALS: BP 148/99; PULSE 90; RESP 18; TEMP 36.4; O2SAT 99
[2025-01-20 12:33] VITALS: BP 148/99; PULSE 90; RESP 18; TEMP 36.4; O2SAT 99
== END 2025-01-20 12:33 | disposition home or self-care (01) ==
PROVIDERS: Physician Assistant Medical; Emergency Provider Emergency Medicine; PCP Internal Medicine
DX: N39.0 Urinary tract infection, site not specified (principal); B96.20 Unspecified Escherichia coli [E. coli] as the cause of diseases classified elsewhere; Z46.6 Encounter for fitting and adjustment of urinary device; G31.09 Other frontotemporal neurocognitive disorder; F02.B4 Dementia in other diseases classified elsewhere, moderate, with anxiety
CPT/HCPCS: 71045; 81001; 87086; 87088; 87186; 99283

== ENCOUNTER → 2025-01-20 11:14 | Outpatient (BNV) | payer MEDICARE, OTHER, SELFPAY | PROVIDERS: PCP Internal Medicine; Visit Provider Radiology Diagnostic Radiology | DX: M47.814 Spondylosis without myelopathy or radiculopathy, thoracic region (principal); M41.34 Thoracogenic scoliosis, thoracic region | CPT/HCPCS: 71045 ==